=== PATIENT | male | born 1965 | race African-American/Black ===

== ENCOUNTER 2017-03-14 10:37 | Emergency (ER) | payer OTHER ==
[~2017-03-14] VITALS: Ht 185.4 cm; Wt 108.9 kg
[2017-03-14] MEDS ORDERED: NACL 0.9% 1,000 ML IV SCH (10:46)
--- NOTE | 2017-03-14 10:51 | NUR ---
Patient ambulated to bed 6. RN evaluating patient at bedside.
[2017-03-14 10:52] VITALS: BP 124/69
--- NOTE | 2017-03-14 10:53 | NUR ---
52/M BIB FRIEND C/O FAINTING SPELLS SINCE LAST NOC. PT STATED FEEL DIZZY; DENIES ANY OTHER MEDICAL HX. DENIES N/V/D; SKIN IS PINK/WARM/DRY; AAOX4 WITH EVEN AND STEADY GAIT; LUNGS CLEAR BL; HR EVEN AND REGULAR; PT DENIES ANY FEVER, CP, SOB, OR COUGH AT THIS TIME; PATIENT STATES PAIN OF 0/10 AT THIS TIME; VSS; PATIENT POSITIONED FOR COMFORT; HOB ELEVATED; BEDRAILS UP X2; BED DOWN. ER MD MADE AWARE OF PT STATUS.
--- NOTE | 2017-03-14 10:53 | NUR ---
X RAY AT BEDSIDE.
--- NOTE | 2017-03-14 11:00 | NUR ---
LAB AT BEDSIDE
--- NOTE | 2017-03-14 11:05 | NUR ---
Patient appears to be resting comfortably in bed. Vital Signs within normal limits. Respirations even and unlabored.WILL CONTINUE TO MONITOR
[2017-03-14 11:22] LABS: BASOPHILS # (AUTO) 0.1 K/uL (0.00-0.22); BASOPHILS % (AUTO) 2.2 % (0.0-2.0); EOSINOPHILS # (AUTO) 0.3 K/uL (0-0.4); EOSINOPHILS % (AUTO) 4.2 % (0.0-4.0); HEMATOCRIT 43.3 % (36-52); HEMOGLOBIN 14.2 g/dL (12.0-18.0); LYMPHOCYTES % (AUTO) 29.4 % (20.5-51.1); MEAN CORPUSCULAR HEMOGLOBIN 30 pg (27-31); MEAN CORPUSCULAR HGB CONC 33 g/dL (33-37); MEAN CORPUSCULAR VOLUME 92 fL (80-94); MONOCYTES # (AUTO) 0.8 K/uL (0.8-1.0); MONOCYTES % (AUTO) 12.7 % (1.7-9.3); NEUTROPHILS # (AUTO) 3.5 K/uL (1.8-7.7); NEUTROPHILS % (AUTO) 51.5 % (42.2-75.2); PLATELET COUNT (AUTO) 309 K/uL (140-450); RED CELL DISTRIBUTION WIDTH 12.5 % (11.6-13.7); WHITE BLOOD COUNT (AUTO) 6.7 K/uL (4.8-10.8)
--- NOTE | 2017-03-14 11:35 | NUR ---
PROVIED JUICES ,WATER & URINE CUP FOR UA COLLECTION
--- NOTE | 2017-03-14 11:35 | NUR ---
Rita back in [facility] - 03/14/17 at 1136 by [facility] LAB AT BEDSIDE
[2017-03-14 11:37] LABS: ALBUMIN 3.5 g/dL (3.4-5.0); ANION GAP 14.4 (8-16); CALCIUM 8.6 mg/dL (8.5-10.1); CARBON DIOXIDE 25.3 mmol/L (21-32); CREATININE 1.6 mg/dL (0.6-1.3); POTASSIUM 3.7 mmol/L (3.5-5.1); TOTAL PROTEIN, SERUM 6.8 g/dL (6.4-8.2)
[2017-03-14 11:38] LABS: PARTIAL THROMBOPLASTIN TIME 24.6 secs (22-35.6); PROTHROMBIN TIME 10.4 secs (10.8-13.4)
--- NOTE | 2017-03-14 11:40 | NUR ---
Patient appears to be resting comfortably in bed. Vital Signs within normal limits. Respirations even and unlabored.WILL CONTINUE TO MONITOR
[2017-03-14 13:34] LABS: APPEARANCE,URINE CLEAR (CLEAR); BILIRUBIN,URINE NEGATIVE (NEGATIVE); BLOOD, URINE NEGATIVE (NEGATIVE); COLOR,URINE YELLOW (YELLOW); LEUKOCYTE ESTERASE ,URINE NEGATIVE (NEGATIVE); NITRITE, URINE NEGATIVE (NEGATIVE); PH,URINE 5.5 (5.0-9.0); PROTEIN,URINE NEGATIVE (NEGATIVE); UGLUCOSE NEGATIVE (NEGATIVE)
--- NOTE | 2017-03-14 14:20 | NUR ---
PT TAKEN TO CT VIA W/C ACCOMPANIED BY [employer] MANAGER.
--- NOTE | 2017-03-14 14:47 | NUR ---
PT BACK FROM CT
--- NOTE | 2017-03-14 14:50 | NUR ---
FRIEND AT BEDSIDE. Patient appears to be resting comfortably in bed. Vital Signs within normal limits. Respirations even and unlabored.WILL CONTINUE TO MONITOR.
[2017-03-14 16:22] VITALS: BP 126/79
--- NOTE | 2017-03-14 16:22 | NUR ---
Patient discharged with v/s stable. Written and verbal after care instructions given and explained. Patient alert, oriented and verbalized understanding of instructions. Ambulatory with steady gait. All questions addressed prior to discharge. ID band removed. Patient advised to follow up with PMD. Rx of ANTIVERT given. Patient educated on indication of medication including possible reaction and side effects. Opportunity to ask questions provided and answered.
== END 2017-03-14 16:22 | disposition home or self-care (01) ==
LOC: MED 10:37
DX: R42 Dizziness and giddiness (principal)
CPT/HCPCS: 36415; 71010; 71275; 80053; 81003; 82150; 82553; 83690; 83880; 84484; 85025; 85379; 85610; 85730; 93005; 96360; 99285; J7030; Q0092; Q9967

== ENCOUNTER 2017-04-27 14:12 | Emergency (ER) | payer OTHER ==
[~2017-04-27] VITALS: Ht 185.4 cm; Wt 102.5 kg
[2017-04-27 14:17] VITALS: BP 132/77
--- NOTE | 2017-04-27 15:12 | NUR ---
PT AMB TO BED 8
--- NOTE | 2017-04-27 15:14 | NUR ---
52M BIB SELF C/O PAIN AND SWELLING TO LEFT 3RD DIGIT FINGER PAIN X 2 WEEKS; PT STATES WAS SEEN IN [facility] ER X 2 DAYS AGO, AND TOLD TO COME BACK TO ER OR SEE PCP. SKIN IS AAOX4 WITH EVEN AND STEADY GAIT; LUNGS CLEAR BL; HR EVEN AND REGULAR; PT DENIES ANY FEVER, CP, SOB, OR COUGH AT THIS TIME; PATIENT STATES PAIN OF 8/10 AT THIS TIME; VSS; PATIENT POSITIONED FOR COMFORT; HOB ELEVATED; BEDRAILS UP X2; BED DOWN. ER MD MADE AWARE OF PT STATUS.
--- NOTE | 2017-04-27 15:43 | NUR ---
MISTI SANCHEZ EVALUATING PT AT BEDSIDE.
[2017-04-27] MEDS ORDERED: LIDOCAINE 1% 500 MG/50 ML VIAL INJ ONE (15:50)
[2017-04-27] MEDS ORDERED: HYDROcodone/APAP 5/325 MG 1 TAB TAB PO ONE (15:50)
--- NOTE | 2017-04-27 16:00 | NUR ---
BS 133;NOTIFIED MISTI SANCHEZ.
--- NOTE | 2017-04-27 16:36 | NUR ---
I& D DONE BY MISTI SANCHEZ; PT TOLERATED PROCEDURE WELL.
[2017-04-27 17:03] VITALS: BP 129/76
--- NOTE | 2017-04-27 17:04 | NUR ---
Patient discharged with v/s stable. Written and verbal after care instructions given and explained. Patient alert, oriented and verbalized understanding of instructions. Ambulatory with steady gait. All questions addressed prior to discharge. ID band removed. Patient advised to follow up with PMD. Rx of CLINDAMYCIN given. Patient educated on indication of medication including possible reaction and side effects. Opportunity to ask questions provided and answered.
== END 2017-04-27 17:04 | disposition home or self-care (01) ==
LOC: MED 14:12
DX: L02.512 Cutaneous abscess of left hand (principal)
CPT/HCPCS: 26011; 82948; 99284; J2001

== ENCOUNTER 2018-06-23 19:30 | Emergency (ER) | payer OTHER ==
[~2018-06-23] VITALS: Ht 185.4 cm; Wt 106.6 kg
[2018-06-23 19:34] VITALS: BP 141/102
[2018-06-23 20:10] LABS: BASOPHILS # (AUTO) 0.1 K/uL (0.00-0.22); BASOPHILS % (AUTO) 0.8 % (0.0-2.0); EOSINOPHILS # (AUTO) 0.3 K/uL (0-0.4); EOSINOPHILS % (AUTO) 3.5 % (0.0-4.0); HEMATOCRIT 44.8 % (36-52); HEMOGLOBIN 14.7 g/dL (12.0-18.0); LYMPHOCYTES # (AUTO) 2.5 K/uL (2.0-11.5); LYMPHOCYTES % (AUTO) 33.9 % (20.5-51.1); MEAN CORPUSCULAR HEMOGLOBIN 30 pg (27-31); MEAN CORPUSCULAR HGB CONC 33 g/dL (33-37); MEAN CORPUSCULAR VOLUME 91.5 fL (80-94); MONOCYTES # (AUTO) 0.7 K/uL (0.8-1.0); MONOCYTES % (AUTO) 9.3 % (1.7-9.3); NEUTROPHILS # (AUTO) 3.9 K/uL (1.8-7.7); NEUTROPHILS % (AUTO) 52.5 % (42.2-75.2); PLATELET COUNT (AUTO) 308 K/uL (140-450); RED BLOOD CELL COUNT(AUTO) 4.89 MIL/uL (4.20-6.10); RED CELL DISTRIBUTION WIDTH 13.9 % (11.6-13.7); WHITE BLOOD COUNT (AUTO) 7.5 K/uL (4.8-10.8)
[2018-06-23 21:19] VITALS: BP 142/89
== END 2018-06-23 21:18 | disposition home or self-care (01) ==
LOC: MED 19:30
DX: M10.072 Idiopathic gout, left ankle and foot (principal)
CPT/HCPCS: 36415; 73630; 84550; 85025; 99285

== ENCOUNTER 2018-11-22 16:49 | Emergency (ER) | payer OTHER ==
[~2018-11-22] VITALS: Ht 185.4 cm; Wt 106.6 kg
[2018-11-22 17:30] VITALS: BP 126/74
--- NOTE | 2018-11-22 19:24 | NUR ---
PT AMBULATED TO BED 4
--- NOTE | 2018-11-22 20:00 | NUR ---
PT BIB SELF C/O LEFT KNEE PAIN. PT STATES HE FELL DOWN STAIRS IN JUNE 2018 ONTO HIS KNEE. PT IS AMBULATORY W/STEADY GATE, PT HAS BEEN FEELING GOOD, BUT WOKE UP THIS MORNING WITH 10/10 KNEE PAIN W/ ROM. NO SWELLING, REDNESS OR DISCHARGE AT THIS TIME; -VISUAL DEFORMITY. --DENIES N/V/D, CP, SOB, OR LOC. SKIN WARM DRY AND INTACT. AAOX4. BREATHING EQUAL AND UNLABORED, LUNG SOUND CLEAR BL. BOWEL SOUNDS ACTIVE X4 QUAD. PT IN BED; BED IN LOWER LOCKED POSITION. ER MD MADE AWARE OF PT STATUS. PMH: DENIES RX: DENIES
[2018-11-22 21:00] VITALS: BP 119/82
--- NOTE | 2018-11-22 21:00 | NUR ---
Patient discharged with v/s stable. Written and verbal after care instructions given and explained. Patient alert, oriented and verbalized understanding of instructions. Ambulatory with steady gait. All questions addressed prior to discharge. ID band removed. Patient advised to follow up with PMD. Rx of MOTRIN AND TYLENOL given. Patient educated on indication of medication including possible reaction and side effects. Opportunity to ask questions provided and answered.
== END 2018-11-22 21:00 | disposition home or self-care (01) ==
LOC: MED 16:49
DX: S83.92XA Sprain of unspecified site of left knee, initial encounter (principal); M17.12 Unilateral primary osteoarthritis, left knee; X50.0XXA Overexertion from strenuous movement or load, initial encounter; Y93.89 Activity, other specified; Y92.89 Other specified places as the place of occurrence of the external cause; Y99.8 Other external cause status
CPT/HCPCS: 73562; 99283

== ENCOUNTER 2019-02-08 08:25 | Emergency (ER) | payer OTHER ==
[~2019-02-08] VITALS: Ht 185.4 cm; Wt 104.8 kg
[2019-02-08 08:31] VITALS: BP 157/98
--- NOTE | 2019-02-08 08:33 | NUR ---
TO BED 3
--- NOTE | 2019-02-08 08:33 | NUR ---
BIB SELF. AAO X4 C/O BUMPS TO ZEYNEP PALMS AND RFA X 5 DAYS, PAINFUL WHEN GRABBING THINGS. PT DENIES ITCHINESS, FEVER, N/V/D, SOB. PT STATES HE CLEANED IT YESTERDAY WITH PEROXIDE AND ALCOHOL. HOB UP. BED SIDE RAILS UP X1. ON LOW BED POSITION, LOCKED. ER MADE AWARE OF PT STATUS.
--- NOTE | 2019-02-08 08:55 | NUR ---
DR MCGRAW AT BEDSIDE FOR PT EVALUATION
[2019-02-08 09:25] VITALS: BP 138/90
--- NOTE | 2019-02-08 09:25 | NUR ---
Patient discharged with v/s stable. Written and verbal after care instructions given and explained. Patient verbalized understanding. Ambulatory with steady gait. All questions addressed prior to discharge. Advised to follow up with PMD.
== END 2019-02-08 09:25 | disposition home or self-care (01) ==
LOC: MED 08:25
DX: L98.9 Disorder of the skin and subcutaneous tissue, unspecified (principal)
CPT/HCPCS: 99281

== ENCOUNTER 2019-02-23 10:40 | Emergency (ER) | payer OTHER ==
[~2019-02-23] VITALS: Ht 185.4 cm; Wt 103.1 kg
--- NOTE | 2019-02-23 10:47 | NUR ---
PATIENT AMBULATED TO BED 12.
[2019-02-23 10:48] VITALS: BP 149/80
--- NOTE | 2019-02-23 10:50 | NUR ---
BIB SELF WITH C/O UNRESOLVED BL HAND DRY DERMITIS SEEN ON 02/05/19 PRESCRIVED WITH CORTISONE CREAME. DENIES ITCHINESS OR PAIN. DENIES N/V/D; SKIN IS PINK/WARM/DRY WITH RASH ON BOTH HANDS AND ARMS; AAOX4 WITH EVEN AND STEADY GAIT; PT DENIES ANY FEVER, CP, SOB, OR COUGH AT THIS TIME; PATIENT STATES PAIN OF 0/10 AT THIS TIME; VSS; PATIENT POSITIONED FOR COMFORT; HOB ELEVATED; BEDRAILS UP X1; BED DOWN. ER MD MADE AWARE OF PT STATUS.
--- NOTE | 2019-02-23 11:34 | NUR ---
LAB AT BEDSIDE
[2019-02-23 11:46] LABS: BASOPHILS # (AUTO) 0.1 K/uL (0.00-0.22); BASOPHILS % (AUTO) 1.1 % (0.0-2.0); EOSINOPHILS # (AUTO) 0.1 K/uL (0-0.4); EOSINOPHILS % (AUTO) 1.7 % (0.0-4.0); HEMOGLOBIN 13.1 g/dL (12.0-18.0); LYMPHOCYTES # (AUTO) 1.5 K/uL (2.0-11.5); LYMPHOCYTES % (AUTO) 28.2 % (20.5-51.1); MEAN CORPUSCULAR HEMOGLOBIN 29 pg (27-31); MEAN CORPUSCULAR HGB CONC 34 g/dL (33-37); MEAN CORPUSCULAR VOLUME 85.9 fL (80-94); MONOCYTES # (AUTO) 0.6 K/uL (0.8-1.0); MONOCYTES % (AUTO) 12.2 % (1.7-9.3); NEUTROPHILS % (AUTO) 56.8 % (42.2-75.2); PLATELET COUNT (AUTO) 398 K/uL (140-450); RED BLOOD CELL COUNT(AUTO) 4.55 MIL/uL (4.20-6.10); RED CELL DISTRIBUTION WIDTH 13.6 % (11.6-13.7); WHITE BLOOD COUNT (AUTO) 5.3 K/uL (4.8-10.8)
[2019-02-23 11:53] LABS: ANION GAP 12.8 (8-16); CREATININE 1.3 mg/dL (0.7-1.3); POTASSIUM 3.8 mmol/L (3.5-5.1)
[2019-02-23 11:59] LABS: ALBUMIN 3.5 g/dL (3.4-5.0); TOTAL BILIRUBIN 1.2 mg/dL (0.0-1.0)
[2019-02-23] MEDS ORDERED: cefTRIAXone 1,000 MG in LIDOCAINE MPF 1% - 5 mL VIAL 2.1 ML IM ONE (12:15)
[2019-02-23 12:47] VITALS: BP 126/98
--- NOTE | 2019-02-23 12:48 | NUR ---
Patient discharged with v/s stable. Written and verbal after care instructions given and explained. Patient alert, oriented and verbalized understanding of instructions. Ambulatory with steady gait. All questions addressed prior to discharge. ID band removed. Patient advised to follow up with PMD. Rx of Prednisone and Keflex given. Patient educated on indication of medication including possible reaction and side effects. Opportunity to ask questions provided and answered.
== END 2019-02-23 12:48 | disposition home or self-care (01) ==
LOC: MED 10:40
DX: R21 Rash and other nonspecific skin eruption (principal)
CPT/HCPCS: 36415; 80053; 85025; 86140; 96372; 99283; J0696; J2001

== ENCOUNTER 2019-07-09 11:47 | Emergency (ER) | payer OTHER ==
[~2019-07-09] VITALS: Ht 185.4 cm; Wt 107.0 kg
[2019-07-09 12:13] VITALS: BP 130/83
--- NOTE | 2019-07-09 12:19 | NUR ---
patient ambulated to bed 04
--- NOTE | 2019-07-09 12:34 | NUR ---
54M c/o generalized pruritic rash x last night after friend came over and sat on his couch. PT denies pain stating that it only itches. TX W/ cortisone and Bengsohail. VSS. ER MD to see PT. 0/10 pain. Denies fever. No PMHx
[2019-07-09] MEDS ORDERED: hydrOXYzine HCL 25 MG TAB PO ONE (12:45)
[2019-07-09] MEDS ORDERED: predniSONE 20 MG TAB PO ONE (12:45)
[2019-07-09 13:13] VITALS: BP 130/83
--- NOTE | 2019-07-09 13:13 | NUR ---
Patient discharged with v/s stable. Written and verbal after care instructions given and explained. Patient alert, oriented and verbalized understanding of instructions. Ambulatory with steady gait. All questions addressed prior to discharge. ID band removed. Patient advised to follow up with PMD. Rx of Prednisone and Hydroxyzine given. Patient educated on indication of medication including possible reaction and side effects. Opportunity to ask questions provided and answered.
== END 2019-07-09 13:13 | disposition home or self-care (01) ==
LOC: MED 11:47
DX: R21 Rash and other nonspecific skin eruption (principal); L29.9 Pruritus, unspecified
CPT/HCPCS: 99283; J7512

== ENCOUNTER 2019-09-20 13:09 | Emergency (ER) | payer OTHER ==
[~2019-09-20] VITALS: Ht 185.4 cm; Wt 106.6 kg
[2019-09-20 13:11] VITALS: BP 158/103
--- NOTE | 2019-09-20 13:19 | NUR ---
PT TO BED 2 WITH STEADY GAIT
--- NOTE | 2019-09-20 13:24 | NUR ---
DR CHE AT BEDSIDE
--- NOTE | 2019-09-20 13:25 | NUR ---
C/O LEFT SHOULDER PAIN 05/07 X 3 DAYS. DENIES TRAUMA. PER PATIENT, PAIN STARTED AT 3 AM A COUPLE DAYS AGO AND WOKE HIM UP. PT TOOK MOTRIN WITH NO RELIEF. -ROM DUE TO PAIN. +CAP REFILL <3 SECONDS. PALPABLE RADIAL PULSES BILATERALLY. PT ALERT AND AWAKE, VS STABLE. AMBULATORY WITH STEADY GAIT. MED HX: DENIES
--- NOTE | 2019-09-20 13:26 | NUR ---
NO DEFORMITY NOTED
[2019-09-20] MEDS ORDERED: KETOROLAC 60 MG/2 ML VIAL IM ONE (13:30)
[2019-09-20] MEDS ORDERED: HYDROcodone/APAP 5/325 MG 1 TAB TAB PO ONE (13:30)
[2019-09-20] MEDS ORDERED: DEXAMETHASONE 10 MG/ML VIAL IM ONE (13:30)
[2019-09-20] MEDS ORDERED: hydrOXYzine HCL 25 MG TAB PO ONE (13:30)
--- NOTE | 2019-09-20 13:43 | NUR ---
XRAY AT BEDSIDE
--- NOTE | 2019-09-20 13:44 | NUR ---
HOLDING USHACO PT IS DRIVING HIMSELF HOME AND MEDICATION MAY CAUSE DROWSINESS AND INTERFERE WITH DRIVING IM TORADOL AND DECADRON AND PO ATARAX ADMINISTERED
--- NOTE | 2019-09-20 13:48 | NUR ---
PT REQUESTED BOTH IM MEDICATIONS BE ON L DELTOID
--- NOTE | 2019-09-20 14:22 | NUR ---
SLING TO PTS L SHOULDER APPLIED BY [facility] EMT PULSES WNL, PT VERBALIZES UNDERSTANDING OF USE
[2019-09-20 14:27] VITALS: BP 153/96
--- NOTE | 2019-09-20 14:27 | NUR ---
PAIN 6/10 AFTER TORADOL AND DECADRON, NADR
--- NOTE | 2019-09-20 14:27 | NUR ---
Patient discharged with v/s stable. Written and verbal after care instructions given and explained REGARDING ADHESIVE CAPSULITIS. Patient alert, oriented and verbalized understanding of instructions. Ambulatory with steady gait. All questions addressed prior to discharge. ID band removed. Patient advised to follow up with PMD. Rx of VOLTAREN given. Patient educated on indication of medication including possible reaction and side effects. Opportunity to ask questions provided and answered. PT GIVEN COPY OF XRAY RESULTS
== END 2019-09-20 14:27 | disposition home or self-care (01) ==
LOC: MED 13:09
DX: M75.02 Adhesive capsulitis of left shoulder (principal); M75.81 Other shoulder lesions, right shoulder
CPT/HCPCS: 73030; 96372; 99283; J1100; J1885; Q0092

== ENCOUNTER 2019-11-19 09:49 | Emergency (ER) | payer OTHER ==
[~2019-11-19] VITALS: Ht 180.3 cm; Wt 103.9 kg
[2019-11-19 09:53] VITALS: BP 139/102
--- NOTE | 2019-11-19 09:58 | NUR ---
PATIENT AMBULATED TO BED 9.
--- NOTE | 2019-11-19 10:04 | NUR ---
54YO M C/O RIGHT FACIAL PAIN AND SWELLING X 1 DAY. PT STATES PAIN 8/10, PRESSURE-LIKE. +NUMBNESS, +TINGLING SENSATION. DENIES H/A. PT TOOK MOTRIN AT 7AM WHICH PROVIDED NO RELIEF. VSS. PERRL 3MM. NO WEAKNESS NOTED. PT POSITIONED IN BED COMFORTABLY. ERMD MADE AWARE OF PT STATUS. PMH: NONE MEDS: NONE NKA
[2019-11-19] MEDS ORDERED: LIDOCAINE/EPI 1% 1:100000 20 ML VIAL INJ ONE (10:10)
[2019-11-19 11:00] VITALS: BP 127/91
== END 2019-11-19 11:00 | disposition home or self-care (01) ==
LOC: MED 09:49
DX: K04.7 Periapical abscess without sinus (principal)
CPT/HCPCS: 41800; 99284; J2001

== ENCOUNTER 2020-06-21 02:49 | Emergency (ER) | payer BC, OTHER ==
[~2020-06-21] VITALS: Ht 185.4 cm; Wt 103.9 kg
[2020-06-21 02:55] VITALS: BP 132/92
--- NOTE | 2020-06-21 02:59 | NUR ---
PT TAKEN TO BED 1
--- NOTE | 2020-06-21 03:09 | NUR ---
55 Y/O MALE C/O INSOMNIA. PT STATES HE HAS BEEN UNABLE TO SLEEP FOR "ABOUT THREE DAYS." STATES HE HAS 6/10 BILATERAL SHOULDER PAIN. DESCRIBES PAIN AT "[facility]" UNKNOWN MG OF TYLENOL TAKEN 1400 YESTERDAY. MED HX: DENIES RX: DENIES NKA
--- NOTE | 2020-06-21 03:22 | NUR ---
ermd at bedside evaluating pt.
[2020-06-21 03:43] VITALS: BP 132/92
--- NOTE | 2020-06-21 03:43 | NUR ---
Patient discharged with v/s stable. Written and verbal after care instructions given and explained. Patient verbalized understanding. Ambulatory with steady gait. ID Band Removed. All questions addressed prior to discharge. Advised to follow up with PMD.
== END 2020-06-21 03:43 | disposition home or self-care (01) ==
LOC: MED 02:49
DX: G47.00 Insomnia, unspecified (principal); F32.9 Major depressive disorder, single episode, unspecified
CPT/HCPCS: 99282

== ENCOUNTER 2022-07-03 20:20 | Emergency (ER) | payer BC, MEDICAID ==
[~2022-07-03] VITALS: Ht 185.4 cm; Wt 108.9 kg
[2022-07-03 21:46] VITALS: BP 131/79
--- NOTE | 2022-07-03 21:51 | NUR ---
TO LOBBY FOLLOWING TRIAGE
--- NOTE | 2022-07-04 00:05 | NUR ---
CALLED BY MYSELF AND ERMD, NO ANSWER. PT LWBS
[2022-07-04] MEDS ORDERED: PRED20TA5 PO (13:29)
[2022-07-04] MEDS ORDERED: HYDR-637 PO (13:29)
== END 2022-07-04 00:05 | disposition left against medical advice (07) ==
LOC: MED 20:20
DX: R21 Rash and other nonspecific skin eruption (principal); Z53.21 Procedure and treatment not carried out due to patient leaving prior to being seen by health care provider

== ENCOUNTER 2022-07-04 12:42 | Emergency (ER) | payer MEDICAID ==
[~2022-07-04] VITALS: Ht 188 cm; Wt 103.4 kg
[2022-07-04 12:59] VITALS: BP 98/76
[2022-07-04] MEDS ORDERED: HYDR-637 PO (13:29)
[2022-07-04] MEDS ORDERED: PRED20TA5 PO (13:29)
--- NOTE | 2022-07-04 13:37 | NUR ---
Patient discharged with v/s stable. Written and verbal after care instructions given. Patient alert, oriented and verbalized understanding of instructions. Ambulatory with steady gait. All questions addressed prior to discharge. ID band removed. Patient advised to follow up with PMD. Rx of Hydroxyzine HCL and Deltasone given. Opportunity to ask questions provided and answered.
== END 2022-07-04 13:37 | disposition home or self-care (01) ==
LOC: MED 12:42
DX: L20.9 Atopic dermatitis, unspecified (principal); I10 Essential (primary) hypertension; Z79.899 Other long term (current) drug therapy
CPT/HCPCS: 99283

== ENCOUNTER 2022-07-24 07:42 | Emergency (ER) | payer MEDICAID ==
[~2022-07-24] VITALS: Ht 180.3 cm; Wt 83.9 kg
[~2022-07-24 07:42] MED LIST: HYDR-637 PO; PRED20TA5 PO
[2022-07-24 07:57] VITALS: BP 129/92
[2022-07-24] MEDS ORDERED: KETOROLAC 60 MG/2 ML VIAL IM ONE (08:40)
[2022-07-24] MEDS ORDERED: INDO-323 PO (09:07)
[2022-07-24] MEDS ORDERED: TRAM50TA1 PO (09:07)
--- NOTE | 2022-07-24 09:10 | NUR ---
RECEIVED PATIENT FROM TRIAGE, PATIENT ALERT AND ORIENTED X 4, PATIENT STATED THAT HE WOKE UP 4 DAYS AGO WITH LEFT FOOT PAIN. PATIENT STATES IT HURTS MORE WHEN HE MOVES IT AND WHEN HE STANDS ON IT. NO DEFORMITY NOTED, SLIGHT SELLING NOTED ON LEFT FOOT. PATIENT DENIES TRAUMA OR PAST MEDICAL HX. DENIES SMOKING OR DRINKING. NO S/S OF ACUTE DISTRESS AT THIS TIME. WILL CONTINUE TO MONITOR.
[2022-07-24] MEDS ORDERED: CEPH-588 PO (09:16)
[2022-07-24 10:02] VITALS: BP 138/79
--- NOTE | 2022-07-24 10:03 | NUR ---
PATIENT LEFT ED WITH NO S/S OF ACUTE DISTRESS, NO INCIDENT. AMBULATED WITHOUT ASSISTANCE. PATIENT VERBALIZED UNDERSTANDING OF HEALTH TEACHINGS.
== END 2022-07-24 10:02 | disposition home or self-care (01) ==
LOC: MED 07:42
DX: M10.072 Idiopathic gout, left ankle and foot (principal); I10 Essential (primary) hypertension; Z79.899 Other long term (current) drug therapy
CPT/HCPCS: 73630; 96372; 99283; J1885

== ENCOUNTER 2022-09-08 12:20 | Emergency (ER) | payer MEDICAID, OTHER ==
[~2022-09-08] VITALS: Ht 180.3 cm; Wt 77.1 kg
[~2022-09-08 12:20] MED LIST changes: +CEPH-588 PO; +INDO-323 PO; +TRAM-748 PO
[2022-09-08 12:26] VITALS: BP 147/95
--- NOTE | 2022-09-08 13:18 | NUR ---
Made call out to lobby and no answer x1.
[2022-09-08] MEDS ORDERED: PRED20TA5 PO ×2 (13:39)
[2022-09-08] MEDS ORDERED: NAPR-54 PO (13:39)
[2022-09-08] MEDS ORDERED: predniSONE 20 MG TAB PO ONE (13:40)
[2022-09-08] MEDS ORDERED: KETOROLAC 30 MG/ML VIAL IM ONE (13:45)
== END 2022-09-08 13:50 | disposition home or self-care (01) ==
LOC: MED 12:20
DX: M20.21 Hallux rigidus, right foot (principal); M10.9 Gout, unspecified; I10 Essential (primary) hypertension; Z79.899 Other long term (current) drug therapy
CPT/HCPCS: 96372; 99283; J1885; J7512

== ENCOUNTER 2022-10-31 14:16 | Emergency (ER) | payer OTHER ==
[~2022-10-31] VITALS: Ht 185.4 cm; Wt 100.7 kg
[~2022-10-31 14:16] MED LIST changes: +NAPR-54 PO
--- NOTE | 2022-10-31 14:21 | NUR ---
called to triage no response
[2022-10-31 14:24] VITALS: BP 135/77
[2022-10-31 14:43] VITALS: BP 133/84
--- NOTE | 2022-10-31 14:43 | NUR ---
57 Y/O M. PATIENT PRESENTS TO ED WITH STOMACH FLU. PT STATES N/V/D FOR THE PAST 2 WEEKS AND COMPLAINS THAT HE MAY HAVE STOMACH FLU; SKIN IS PINK/WARM/DRY; AAOX4 WITH EVEN AND STEADY GAIT; LUNGS CLEAR BL; HR EVEN AND REGULAR; PT DENIES ANY FEVER, CP, SOB, OR COUGH AT THIS TIME; PATIENT STATES PAIN OF 0/10 AT THIS TIME; VSS; PATIENT POSITIONED FOR COMFORT; HOB ELEVATED; BEDRAILS UP X2; BED DOWN. ER MD MADE AWARE OF PT STATUS. PMH: HTN NKA
[2022-10-31] MEDS ORDERED: FAMOTIDINE 20 MG/2 ML VIAL IVP ONE (16:10)
[2022-10-31] MEDS ORDERED: ONDANSETRON 4 MG/2 ML VIAL IVP ONE (16:10)
[2022-10-31] MEDS ORDERED: LOPERAMIDE 2 MG CAP PO ONE (16:10)
[2022-10-31] MEDS ORDERED: NACL 0.9% 1,000 ML IV SCH (16:10)
[2022-10-31 16:32] LABS: BASOPHILS # (AUTO) 0.1 K/uL (0.00-0.22); BASOPHILS % (AUTO) 0.7 % (0.0-2.0); EOSINOPHILS # (AUTO) 0.2 K/uL (0-0.4); EOSINOPHILS % (AUTO) 1.8 % (0.0-4.0); HEMATOCRIT 34.4 % (36-52); HEMOGLOBIN 11.6 g/dL (12.0-18.0); LYMPHOCYTES # (AUTO) 2.5 K/uL (2.0-11.5); LYMPHOCYTES % (AUTO) 20.8 % (20.5-51.1); MEAN CORPUSCULAR HEMOGLOBIN 29 pg (27-31); MEAN CORPUSCULAR HGB CONC 34 g/dL (33-37); MEAN CORPUSCULAR VOLUME 86.6 fL (80-94); MONOCYTES # (AUTO) 1.9 K/uL (0.8-1.0); NEUTROPHILS # (AUTO) 7.2 K/uL (1.8-7.7); NEUTROPHILS % (AUTO) 60.7 % (42.2-75.2); PLATELET COUNT (AUTO) 491 K/uL (140-450); RED BLOOD CELL COUNT(AUTO) 3.97 MIL/uL (4.20-6.10); RED CELL DISTRIBUTION WIDTH 14.6 % (11.6-13.7); WHITE BLOOD COUNT (AUTO) 11.8 K/uL (4.8-10.8)
[2022-10-31 17:03] LABS: ALBUMIN 3.6 g/dL (3.4-5.0); ANION GAP 11.9 (8-16); CREATININE 1.6 mg/dL (0.6-1.3); POTASSIUM 3.9 mmol/L (3.5-5.1); TOTAL BILIRUBIN 0.4 mg/dL (0.0-1.0)
[2022-10-31] MEDS ORDERED: CIPR500T4 PO (17:57)
[2022-10-31] MEDS ORDERED: LOPE-289 PO (17:57)
[2022-10-31] MEDS ORDERED: METR-435 PO (17:57)
--- NOTE | 2022-10-31 18:21 | NUR ---
Patient discharged with v/s stable. Written and verbal after care instructions given and explained. Patient alert, oriented and verbalized understanding of instructions. Ambulatory with steady gait. All questions addressed prior to discharge. ID band removed. Patient advised to follow up with PMD. Rx of CIPRO, IMODIUM, AND FLAGYL given. Patient educated on indication of medication including possible reaction and side effects. Opportunity to ask questions provided and answered.
== END 2022-10-31 18:20 | disposition home or self-care (01) ==
LOC: MED 14:16
DX: K57.92 Diverticulitis of intestine, part unspecified, without perforation or abscess without bleeding (principal); N28.9 Disorder of kidney and ureter, unspecified; R19.7 Diarrhea, unspecified; R11.10 Vomiting, unspecified; R55 Syncope and collapse; R93.89 Abnormal findings on diagnostic imaging of other specified body structures; G95.89 Other specified diseases of spinal cord; I10 Essential (primary) hypertension; Z79.899 Other long term (current) drug therapy
CPT/HCPCS: 36415; 74176; 80053; 83690; 85025; 93005; 96361; 96374; 96375; 99285; J2405; J3490; J7030